=== PATIENT | male | born 1995 | race Hispanic/Latino ===

== ENCOUNTER 2019-10-03 19:17 | Emergency (ER) | payer OTHER, SELFPAY ==
[2019-10-03] MEDS ORDERED: Acetaminophen 500 MG TAB ONE (19:52)
== END 2019-10-03 20:37 | disposition home or self-care (01) ==
LOC: ERS 19:17
DX: U07.1 COVID-19 (principal); F17.210 Nicotine dependence, cigarettes, uncomplicated
CPT/HCPCS: 99283